=== PATIENT | male | born 1985 | race Caucasian/White ===

== ENCOUNTER 2020-03-26 09:21 | Inpatient (IN) | payer OTHER ==
[~2020-03-26] VITALS: Ht 172.7 cm; Wt 52.2 kg
[2020-03-26] MEDS ORDERED: MORPHINE SULFATE 4 MG/ML CPJ (NOT FOR IM USE) IV STA (09:39)
[2020-03-26] MEDS ORDERED: DIPHENHYDRAMINE 50MG/ML VIAL IV ONE (09:45)
[2020-03-26 09:55] LABS: HEMATOCRIT. 35.4 % (42.0-52.0); HEMOGLOBIN. 11.6 g/dL (14.0-18.0); MEAN CORPUSCULAR VOLUME 79.4 fL (80.0-94.0); MEAN PLATELET VOLUME 6.6 fl (7.4-10.4); PLATELET 301 x1000/uL (130-400); RED BLOOD CELL COUNT 4.46 mill/uL (4.7-6.1); RED CELL DISTRIBUTION WIDTH 19.6 % (11.6-14.6)
[2020-03-26 10:02] LABS: CHLORIDE 108 mEq/L (98-107)
[2020-03-26 10:04] LABS: INR 1.1; PROTHROMBIN TIME 11.7 sec (9.6-11.0)
[2020-03-26 10:05] LABS: BG BASE EXCESS -3.4 mmol/L (-2.0-2.0); BG CARBOXYHEMOGLOBIN 0.3 % (0.5-1.5); BG DEOXYHEMOGLOBIN 0.9 % (0.0-5.0); BG HCO3 ACT 20.2 mmol/L (22.0-26.0); BG METHEMOGLOBIN 0.7 % (0.0-1.5); BG OXYGEN SATURATION 99.1 % (92.0-98.5); BG OXYHEMOGLOBIN 98.1 % (94.0-97.0); BG PCO2 32.2 mmHg (35.0-45.0); BG PH 7.416 (7.350-7.450); BG PO2 203.4 mmHg (75.0-100.0); BG SAMPLE SITE RIGHT RADIAL; BG TOTAL HEMOGLOBIN 12.7 g/dL (12.0-18.0); BG VENT MODE MASK - NRB
[2020-03-26 11:05] LABS: PLATELET ESTIMATE NORMAL
[2020-03-26] MEDS ORDERED: PIPERACILLIN/TAZ 3.375G PREMIX 50 ML IV ONE (11:15)
[2020-03-26] MEDS ORDERED: LEVOFLOXACIN 750MG PREMIX 150 ML IV ONE (11:15)
[2020-03-26] MEDS ORDERED: MORPHINE SULFATE 4 MG/ML CPJ (NOT FOR IM USE) IV ONE (11:30)
[2020-03-26 11:33] LABS: CLARITY URINE CLEAR (CLEAR); COLOR URINE DARK YELLOW (YELLOW); KETONES URINE NEGATIVE (NEGATIVE); LEUKOCYTE ESTERASE URINE NEGATIVE (NEGATIVE); NITRITE URINE NEGATIVE (NEGATIVE); OCCULT BLOOD URINE 3+ (NEGATIVE); PROTEIN URINE 2+ (NEGATIVE); SPECIFIC GRAVITY URINE 1.023 (1.005-1.030); UROBILINOGEN URINE 0.2 E.U./dL (0.2-1.0)
[2020-03-26] MEDS ORDERED: ACETAMINOPHEN 325MG TABLET PO ONE (12:00)
[2020-03-26] MEDS ORDERED: HYDROCODONE/ACETAMINOPHEN 5/325MG TABLET PO PRN (14:45)
[2020-03-26] MEDS ORDERED: LORAZEPAM 2MG/ML CPJ IV PRN (14:45)
[2020-03-26] MEDS ORDERED: GUAIFENESIN 200MG/10ML SUGAR FREE UDC PO PRN (14:45)
[2020-03-26] MEDS ORDERED: ONDANSETRON HCL 4MG/2ML INJ IV PRN (14:45)
[2020-03-26] MEDS ORDERED: MAGNESIUM/ALUMINUM HYDROXIDE/SIMETHICONE 30ML UDC PO PRN (14:45)
[2020-03-26] MEDS ORDERED: CLONIDINE 0.1MG TABLET PO PRN (14:45)
[2020-03-26] MEDS ORDERED: ACETAMINOPHEN 325MG TABLET PO PRN (14:45)
[2020-03-26] MEDS ORDERED: DOCUSATE SODIUM 100MG CAPSULE PO PRN (14:45)
[2020-03-26] MEDS ORDERED: NA PHOS,M-B/NA PHOS,DI-BA ENEMA 118ML PR PRN (14:45)
[2020-03-26] MEDS ORDERED: METHYLPREDNISOLONE SOD SUCC 125 MG/2 ML VIAL IV SCH (14:45)
[2020-03-26] MEDS ORDERED: IPRATROPIUM/ALBUTEROL 0.5-3(2.5)MG/3ML NEB NEB PRN (14:45)
[2020-03-26] MEDS: SODIUM CHLORIDE 0.45% 1,000 ML IV SCH (14:54)
[2020-03-26] MEDS: ENOXAPARIN 40MG/0.4ML SYR SUBCUT SCH (15:00)
[2020-03-26] MEDS ORDERED: CEFTRIAXONE 1 G PREMIX 50 ML IV NR (15:15)
[2020-03-26] MEDS ORDERED: CEFTRIAXONE 1 G PREMIX 50 ML IV SCH (15:15)
[2020-03-26] MEDS ORDERED: ALBUTEROL 6.7GM HFA INHALER ORI PRN (15:15)
[2020-03-26] MEDS: MORPHINE SULFATE 2 MG/ML CPJ (NOT FOR IM USE) IV PRN ×3 (15:26→23:36)
[2020-03-26] MEDS ORDERED: AZITHROMYCIN 500 MG in DEXT 5% WATER 250 ML IV SCH (16:00)
[2020-03-26] MEDS ORDERED: LIDOCAINE HCL/PF 1% 2ML VIAL ONE (16:00)
[2020-03-26] MEDS: DIPHENHYDRAMINE 50MG/ML VIAL IV PRN ×2 (20:18→23:36)
[2020-03-26 20:30] VITALS: BP 126/78
[2020-03-26 20:45] VITALS: BP 117/76
[2020-03-26] MEDS ORDERED: HYDR4TAB4 PO (21:30)
[2020-03-27 00:17] VITALS: BP 128/69
[2020-03-27 04:00] VITALS: BP 118/64
[2020-03-27] MEDS: MORPHINE SULFATE 2 MG/ML CPJ (NOT FOR IM USE) IV PRN ×2 (04:06→08:29)
[2020-03-27] MEDS: DIPHENHYDRAMINE 50MG/ML VIAL IV PRN ×2 (04:07→08:24)
[2020-03-27 08:00] VITALS: BP 129/67
[2020-03-27] MEDS: ASPIRIN 81MG EC TABLET PO SCH (08:24)
[2020-03-27 08:41] LABS: CHLORIDE 107 mEq/L (98-107)
[2020-03-27 08:50] LABS: HDL CHOLESTEROL 46 mg/dL (40-59); LDL CHOLESTEROL 56 mg/dL (5-100)
[2020-03-27 08:52] LABS: T4 FREE 1.52 ng/dL (0.76-1.46)
[2020-03-27 10:06] LABS: *AMPHETAMINES SCREEN URINE NEGATIVE (NEGATIVE); *BARBITURATES SCREEN URINE NEGATIVE (NEGATIVE)
[2020-03-27 10:07] LABS: *BENZODIAZEPINES SCREEN URINE NEGATIVE (NEGATIVE); *COCAINE SCREEN URINE NEGATIVE (NEGATIVE); CANNABINOID URINE SCREEN PRESUMTIVE POSITIVE (NEGATIVE); METHADONE URINE SCREEN NEGATIVE (NEGATIVE); OPIATES URINE SCREEN PRESUMTIVE POSITIVE (NEGATIVE); PHENCYCLIDINE URINE SCREEN NEGATIVE (NEGATIVE)
[2020-03-27 10:38] LABS: BASOPHILS % 0.4 % (0.0-2.0); EOSINOPHILS % 1.8 % (0.0-5.0); HEMOGLOBIN. 12.3 g/dL (14.0-18.0); LYMPHOCYTES % 7.7 % (20.0-50.0); MEAN CORPUSCULAR HEMOGLOBIN 26.6 pg (28.0-32.0); MEAN PLATELET VOLUME 6.8 fl (7.4-10.4); MONOCYTES % 5.2 % (2.0-8.0); NEUTROPHILS % 84.9 % (40.0-76.0); PLATELET 302 x1000/uL (130-400); RED BLOOD CELL COUNT 4.63 mill/uL (4.7-6.1)
[2020-03-27] MEDS: HYDROMORPHONE HCL/PF 2MG/ML CPJ IV PRN ×2 (11:10→15:16)
[2020-03-27] MEDS ORDERED: LACT1CAP73 MT (11:29)
[2020-03-27] MEDS ORDERED: XAR15 MT (11:29)
[2020-03-27] MEDS ORDERED: ONDA8TAB6 PO (11:29)
[2020-03-27] MEDS ORDERED: QUET100T MT (11:29)
[2020-03-27] MEDS ORDERED: BUPR100T13 PO (11:29)
[2020-03-27] MEDS ORDERED: DORN1SOL INH (11:29)
[2020-03-27] MEDS ORDERED: CALC-1042 PO (11:29)
[2020-03-27] MEDS ORDERED: PROT40 MT (11:29)
[2020-03-27] MEDS ORDERED: MULT-1146 MT (11:29)
[2020-03-27] MEDS ORDERED: AMYL1CAP61 MT (11:29)
[2020-03-27] MEDS ORDERED: ALBU6.7H9 INH (11:29)
[2020-03-27] MEDS ORDERED: ELEX1TAB PO (11:29)
[2020-03-27 12:00] VITALS: BP 112/73
[2020-03-27] MEDS: CEFTRIAXONE 1,000 MG in DEXTROSE 5% WATER 50 ML IV SCH (13:24)
[2020-03-27] MEDS ORDERED: CEFTRIAXONE 1,000 MG in DEXTROSE 5% WATER 50 ML IV SCH (14:00)
[2020-03-27] MEDS: ENOXAPARIN 40MG/0.4ML SYR SUBCUT SCH (15:00)
[2020-03-27 16:00] VITALS: BP 133/84
[2020-03-27] MEDS ORDERED: ONDANSETRON HCL 8MG TABLET PO SCH (16:00)
[2020-03-27] MEDS ORDERED: ALBUTEROL 6.7GM HFA INHALER INH SCH (17:00)
[2020-03-27] MEDS ORDERED: RIVAROXABAN 15 MG TABLET PO SCH (17:00)
[2020-03-27] MEDS ORDERED: DORNASE ALFA INH SCH (17:00)
[2020-03-27] MEDS ORDERED: BUPROPION HCL 150MG TABLET XL 24HR PO SCH (17:00)
[2020-03-27] MEDS: AZITHROMYCIN 250 MG in DEXT 5% WATER 250 ML IV SCH (17:06)
[2020-03-27] MEDS: PANTOPRAZOLE 40MG DR TABLET PO SCH (17:06)
[2020-03-27] MEDS: SODIUM CHLORIDE 0.45% 1,000 ML IV SCH ×2 (17:08→23:47)
[2020-03-27] MEDS: HYDROMORPHONE HCL 2MG TABLET PO PRN ×2 (17:48→23:47)
[2020-03-27 20:00] VITALS: BP 100/62
[2020-03-27] MEDS: QUETIAPINE FUMARATE 50MG TABLET PO SCH (21:03)
[2020-03-28] VITALS: BP 103/61
[2020-03-28 04:00] VITALS: BP 106/59
[2020-03-28] MEDS: HYDROMORPHONE HCL 2MG TABLET PO PRN ×3 (05:44→17:50)
[2020-03-28 08:00] VITALS: BP 97/60
[2020-03-28] MEDS: ASPIRIN 81MG EC TABLET PO SCH (08:42)
[2020-03-28] MEDS: LIPASE/PROTEASE/AMYLASE 4,200/14,200/24,600 UNITS CAP DR PO SCH ×2 (08:43→17:20)
[2020-03-28] MEDS: PANTOPRAZOLE 40MG DR TABLET PO SCH (08:43)
[2020-03-28] MEDS: LACTOBACILLUS GG CAPSULE PO SCH (08:43)
[2020-03-28] MEDS: CALCIUM CARBONATE 1250MG TABLET (500MG ELEMENTAL CALCIUM) PO SCH (08:43)
[2020-03-28] MEDS: MULTIVITAMINS,THER W-MINERALS TABLET PO SCH (08:43)
[2020-03-28] MEDS ORDERED: [UNRECOGNIZED DRUG - OTHER] PO SCH (09:00)
[2020-03-28 10:11] LABS: CREATINE KINASE MB FRACTION 1.8 ng/mL (0.5-3.6)
[2020-03-28] MEDS: CEFTRIAXONE 1,000 MG in DEXTROSE 5% WATER 50 ML IV SCH (13:31)
[2020-03-28 16:30] VITALS: BP 112/73
[2020-03-28] MEDS: RIVAROXABAN 20 MG TABLET PO SCH (17:20)
[2020-03-28] MEDS: AZITHROMYCIN 250 MG in DEXT 5% WATER 250 ML IV SCH (18:11)
[2020-03-28 20:00] VITALS: BP 107/62
[2020-03-28] MEDS: IPRATROPIUM/ALBUTEROL 0.5-3(2.5)MG/3ML NEB HHN SCH (20:42)
[2020-03-28] MEDS: QUETIAPINE FUMARATE 50MG TABLET PO SCH (21:22)
[2020-03-28] MEDS: BUPROPION HCL 150MG TABLET XL 24HR PO SCH (21:26)
[2020-03-29] VITALS: BP 108/70
[2020-03-29] MEDS: HYDROMORPHONE HCL 2MG TABLET PO PRN ×4 (00:21→18:26)
[2020-03-29] MEDS: SODIUM CHLORIDE 0.45% 1,000 ML IV SCH (00:37)
[2020-03-29] MEDS: IPRATROPIUM/ALBUTEROL 0.5-3(2.5)MG/3ML NEB HHN SCH ×4 (01:57→20:55)
[2020-03-29 04:00] VITALS: BP 94/49
[2020-03-29 07:33] LABS: BASOPHILS % 1.2 % (0.0-2.0); EOSINOPHILS % 5.4 % (0.0-5.0); HEMATOCRIT. 35.1 % (42.0-52.0); HEMOGLOBIN. 11.4 g/dL (14.0-18.0); LYMPHOCYTES % 28.8 % (20.0-50.0); MEAN CORPUSCULAR HEMOGLOBIN 26.1 pg (28.0-32.0); MEAN CORPUSCULAR VOLUME 80.1 fL (80.0-94.0); MEAN PLATELET VOLUME 6.9 fl (7.4-10.4); MONOCYTES % 9.7 % (2.0-8.0); NEUTROPHILS % 54.9 % (40.0-76.0); PLATELET 298 x1000/uL (130-400); RED BLOOD CELL COUNT 4.38 mill/uL (4.7-6.1); RED CELL DISTRIBUTION WIDTH 19.9 % (11.6-14.6)
[2020-03-29 07:46] LABS: CHLORIDE 108 mEq/L (98-107)
[2020-03-29] MEDS: LIPASE/PROTEASE/AMYLASE 4,200/14,200/24,600 UNITS CAP DR PO SCH ×3 (07:51→17:35)
[2020-03-29] MEDS: FAMOTIDINE 20MG TABLET PO SCH ×2 (09:00→21:34)
[2020-03-29] MEDS: ASPIRIN 81MG EC TABLET PO SCH (09:00)
[2020-03-29] MEDS: LACTOBACILLUS GG CAPSULE PO SCH (09:00)
[2020-03-29] MEDS: AZITHROMYCIN 250 MG TABLET PO SCH (09:00)
[2020-03-29] MEDS: MULTIVITAMINS,THER W-MINERALS TABLET PO SCH (09:00)
[2020-03-29] MEDS: CALCIUM CARBONATE 1250MG TABLET (500MG ELEMENTAL CALCIUM) PO SCH (09:00)
[2020-03-29 12:00] VITALS: BP 112/64
[2020-03-29] MEDS ORDERED: IOHEXOL-350 100 ML BOTTLE ONE (12:05)
[2020-03-29] MEDS: CEFTRIAXONE 1,000 MG in DEXTROSE 5% WATER 50 ML IV SCH (15:15)
[2020-03-29 16:00] VITALS: BP 110/62
[2020-03-29] MEDS: BUPROPION HCL 150MG TABLET XL 24HR PO SCH ×2 (17:00→17:34)
[2020-03-29] MEDS: RIVAROXABAN 20 MG TABLET PO SCH (17:35)
[2020-03-29 20:00] VITALS: BP 118/71
[2020-03-29] MEDS ORDERED: BUPROPION HCL 150MG TABLET XL 24HR PO SCH (21:00)
[2020-03-29] MEDS: QUETIAPINE FUMARATE 50MG TABLET PO SCH (21:34)
[2020-03-30] VITALS: BP 122/68
[2020-03-30] MEDS: HYDROMORPHONE HCL 2MG TABLET PO PRN ×3 (00:05→12:10)
[2020-03-30] MEDS: SODIUM CHLORIDE 0.45% 1,000 ML IV SCH (00:16)
[2020-03-30 04:00] VITALS: BP 112/63
[2020-03-30] MEDS: LIPASE/PROTEASE/AMYLASE 4,200/14,200/24,600 UNITS CAP DR PO SCH ×2 (06:06→12:15)
[2020-03-30 08:00] VITALS: BP 111/69
[2020-03-30] MEDS: ASPIRIN 81MG EC TABLET PO SCH ×2 (09:00→09:12)
[2020-03-30] MEDS: MULTIVITAMINS,THER W-MINERALS TABLET PO SCH (09:11)
[2020-03-30] MEDS: FAMOTIDINE 20MG TABLET PO SCH (09:11)
[2020-03-30] MEDS: LACTOBACILLUS GG CAPSULE PO SCH (09:12)
[2020-03-30] MEDS: CALCIUM CARBONATE 1250MG TABLET (500MG ELEMENTAL CALCIUM) PO SCH (09:12)
[2020-03-30] MEDS: AZITHROMYCIN 250 MG TABLET PO SCH (09:12)
[2020-03-30] MEDS: IPRATROPIUM/ALBUTEROL 0.5-3(2.5)MG/3ML NEB HHN SCH (10:40)
[2020-03-30 13:38] VITALS: BP 111/69
== END 2020-03-30 14:20 | disposition home or self-care (01) | DRG 871 ==
LOC: ER 09:21 → EDBEDREQSVC 11:12 → EDBEDREQTM 11:12 → EDBEDREQ 11:12 → 7WST 11:49 → EDBEDREQTM 11:55 → EDBEDREQ 11:55 → ENRESERV 19:24 → 5WST 03-28 12:20
PROVIDERS: ADMIT Internal Medicine; ATTEND Internal Medicine
DX: A41.9 Sepsis, unspecified organism (principal); J96.20 Acute and chronic respiratory failure, unspecified whether with hypoxia or hypercapnia; J18.9 Pneumonia, unspecified organism; E84.9 Cystic fibrosis, unspecified; F11.20 Opioid dependence, uncomplicated; E86.0 Dehydration; I10 Essential (primary) hypertension; J44.9 Chronic obstructive pulmonary disease, unspecified; R74.0 Nonspecific elevation of levels of transaminase and lactic acid dehydrogenase [LDH]; Z20.828 Contact with and (suspected) exposure to other viral communicable diseases; M41.9 Scoliosis, unspecified; R07.9 Chest pain, unspecified; Z88.8 Allergy status to other drugs, medicaments and biological substances; Z86.711 Personal history of pulmonary embolism
CPT/HCPCS: 36415; 36600; 71045; 71275; 80048; 80053; 80061; 80305; 81003; 82375; 82550; 82553; 82565; 82805; 82947; 83036; 83605; 83880; 84075; 84145; 84439; 84443; 84484; 84520; 85025; 85379; 87635; 93005; 93306; 93970; 94003; 94640; 96365; 99285; J0456; J0696; J1170; J1200; J1956; J2270; J2543; J3490; J7060; Q9967